=== PATIENT | female | born 1945 | race Hispanic/Latino ===

== ENCOUNTER 2016-07-05 08:18 | Emergency (ER) | payer MEDICAID, MEDICARE ==
[2016-07-05 08:24] VITALS: BMI 41.1
[2016-07-05 08:32] VITALS: TEMP 98.1; O2SAT 96
--- NOTE | 2016-07-05 08:48 | ED PDOC ---
Arrival/HPI - General Chief Complaint: Abdominal Pain Time Seen by Provider: 07/05/16 08:45 Historian: Patient - History of Present Illness Narrative History of Present Illness (Text): 07/05/16 08:45 70 year old female presents to the emergency department with suprapubic pain for the past 3-4 days with dysuria and frequency. Patient states it feels like her previous UTI's. Contrary to triage, patient does not have pain that radiates to the back. Patient also reports intermittent pain that feels like burning, beginning in the right buttock and radiates down the right leg, worse with movement or positioning, for the past few months. Time/Duration: < week Symptom Onset: Gradual Symptom Course: Unchanged Modifying Factors (Text): None Associated Symptoms (Text): None Past Medical History - Provider Review Nursing Documentation Reviewed: Yes - Infectious Disease Hx of Infectious Diseases: None - Tetanus Immunization Tetanus Immunization: Unknown - Cardiac Hx Cardiac Disorders: Yes Hx Circulatory Problems: Yes (right carotid endartorectomy) Hx Hypertension: Yes - Pulmonary Hx Respiratory Disorders: Yes Hx Asthma: Yes Hx Bronchitis: Yes Hx Chronic Obstructive Pulmonary Disease (COPD): Yes Hx Pneumonia: Yes - Neurological Hx Neurological Disorder: Yes HX Cerebrovascular Accident: Yes (left hand weakness) - HEENT Hx HEENT Disorder: No - Renal Hx Renal Disorder: Yes Hx Kidney Stones: Yes - Endocrine/Metabolic Hx Endocrine Disorders: No - Hematological/Oncological Hx Blood Disorders: No - Integumentary Hx Dermatological Disorder: No - Musculoskeletal/Rheumatological Hx Musculoskeletal Disorders: Yes Hx Arthritis: Yes - Gastrointestinal Hx Gastrointestinal Disorders: Yes Hx Gall Bladder Disease: Yes (cholecystectomy) - Genitourinary/Gynecological Hx Genitourinary Disorders: Yes Hx Urinary Tract Infection: Yes ("bladder infection") - Psychiatric Hx Psychophysiologic Disorder: No Hx Substance Use: No - Surgical History Hx Appendectomy: Yes Hx Cholecystectomy: Yes Hx Hysterectomy: Yes Other/Comment: tubal ligation - Anesthesia Hx Anesthesia: Yes Hx Anesthesia Reactions: No Hx Malignant Hyperthermia: No - Suicidal Assessment Feels Threatened In Home Enviroment: No Family/Social History - Physician Review Nursing Documentation Reviewed: Yes Family/Social History: Unknown Family HX Smoking Status: Former Smoker Hx Alcohol Use: No Hx Substance Use: No Hx Substance Use Treatment: No Allergies/Home Meds Allergies/Adverse Reactions: Allergies Penicillins Allergy (Verified 07/05/16 08:24) ANAPHYLAXIS Sulfa (Sulfonamide Antibiotics) Allergy (Verified 07/05/16 08:24) ANAPHYLAXIS Home Medications: Home Meds Medication Instructions Recorded Confirmed Carvedilol [Coreg] 6.25 mg PO BID 08/21/15 07/05/16 Pravastatin Sodium [Pravachol] 40 mg PO DAILY 08/21/15 07/05/16 Albuterol HFA [Ventolin HFA 90 1 puff IH PRN PRN 07/05/16 07/05/16 mcg/actuation (8 g)] Aspirin [Aspirin Chewable] 81 mg PO DAILY 07/05/16 07/05/16 Levocetirizine Dihydrochloride 5 mg PO DAILY 07/05/16 07/05/16 [Levocetirizine Dihydrochloride] Losartan/Hydrochlorothiazide 1 tab PO DAILY 07/05/16 07/05/16 [Losartan-Hctz 100-25 mg Tab] Verapamil HCl [Verapamil ER] 240 mg PO DAILY 07/05/16 07/05/16 Review of Systems - Physician Review All systems were reviewed & negative as marked: Yes Physical Exam - Physical Exam Narrative Physical Exam (Text): - Review of Systems Constitutional: Normal. absent: Fatigue, Weight Change, Fevers Eyes: Normal ENT: Normal Respiratory: Normal absent: SOB, Cough, Sputum Cardiovascular: Normal absent: Chest pain, Palpitations, Syncope Gastrointestinal: Suprapubic abdominal pain absent: Diarrhea, Nausea, Vomiting Genitourinary: Dysuria, Frequency absent: Hematuria Musculoskeletal: Right buttock pain radiating to the right lower extremity absent: Arthralgias, Neck Pain Skin: Normal Neurological: Normal absent: Focal Weakness Endocrine: Normal Hemo/Lymphatic: Normal Psychiatric: Normal - Physical exam Patient appears age appropriate, speaking full sentences without difficulty - Systems Exam Head: Present: Atraumatic, Normocephalic Pupils: Present: PERRL Extraocular Muscles: Present: EOMI Conjunctiva: Present: Normal Mouth: Present: Moist Mucous Membranes Neck: Present: Normal Range of Motion. No: MIDLINE TENDERNESS, Paraspinal Tenderness Respiratory/Chest: Present: Clear to Auscultation, Good Air Exchange. No: Respiratory Distress, Accessory Muscle Use, Tachypneic Cardiovascular: Present: Regular Rate and Rhythm, Normal S1, S2, Peripheral Pulses Present. No: Murmurs Abdomen: Present: Suprapubic tenderness to palpation, Normal Bowel Sounds, No: Peritoneal Signs, Rebound, Guarding, Distention Back: Present: Right buttock tenderness to palpation, pain quality reproducible with palpation. No: Midline Tenderness, Paraspinal Tenderness Upper Extremity: Present: Normal Inspection. No: Cyanosis, Edema Lower Extremity: Present: Normal Inspection. No: Edema Neurological: Present: GCS=15, Speech Normal, cranial nerves II through XII fully intact with no cerebellar abnormality, neuro-sensory fully intact. No focal neurological deficits. Skin: Present: Warm, Dry, Normal Color. No: Rashes Lymphatic: Present: OX3, NI, NC Psychiatric: Present: Alert, Oriented x 3, Normal Insight, Normal Concentration Vital Signs Reviewed: Yes Vital Signs Temp Pulse Resp BP Pulse Ox 07/05/16 08:31 98.1 F 78 16 140/96 H 96 Temperature: Afebrile Blood Pressure: Normal Pulse: Regular Respiratory Rate: Normal Appearance: Positive for: Well-Appearing, Non-Toxic, Uncomfortable Mental Status: Positive for: Alert and Oriented X 3 Medical Decision Making ED Course and Treatment: Impression: 70 year old female presents with suprapubic pain and right buttock pain radiating down the leg. On physical exam, patient has suprapubic tenderness to palpation, right buttock tenderness to palpation, pain quality reproducible with palpation. Differential Diagnosis include but are not limited to: Sciatica vs Piriformis syndrome Plan: -- Toradol -- Reassess and disposition Prior Visits: Notes and results from previous visits were reviewed. Patient last seen in the ED on 12/17/15 and admitted for COPD exacerbation Progress Notes: EKG shows NSR at [address]-segment elevations, normal intervals. with no prior for comparison. Interpreted by me. 07/05/16 09:56 On reevaluation, patients states that her buttock/right lower extremity discomfort fully resolved. UA pos. for yeast pt states she feels comfortable being dc'd home with outpatient f/u Will order urine culture. Patient states that she understands to follow-up in medical records in 48 hours for results. Pt states she understands to return to the ER right away for new or worsening symptoms or for inability to f/u with PMD or specialist as instructed. Patient states that she fully agrees with and understands discharge instructions. States that she agrees with the plan and disposition. Verbalized and repeated discharge instructions and plan. I have given the patient opportunity to ask any additional questions. - Lab Interpretations Lab Results: Lab Results 07/05/16 08:50: Urine Color Yellow, Urine Appearance Clear, Urine pH 6.0, Ur Specific Sidney 1.025, Urine Protein Trace H, Urine Glucose (UA) Negative, Urine Ketones Negative, Urine Blood Small H, Urine Nitrate Negative, Urine Bilirubin Negative, Urine Urobilinogen 0.2, Ur Leukocyte Esterase Small H, Urine RBC 2 - 5, Urine WBC 5 - 10, Ur Epithelial Cells 4 - 5, Amorphous Sediment Few, Urine Bacteria Small, Urine Other Uyeast - EKG Interpretation Interpreted by ED Physician: Yes Type: 12 lead EKG - Medication Orders Current Medication Orders: Discontinued Medications Ketorolac Tromethamine (Toradol) 30 mg IM STAT STA Stop: 07/05/16 08:46 Last Admin: 07/05/16 08:54 Dose: 30 MG IM Administration Charges Document 07/05/16 08:54 ALA (Rec: 07/05/16 08:54 ALA [id number]) Injection Site MAR Injection Site Right Gluteus Aditya Charges for Administration # of IM Administrations 1 - Scribe Statement The provider has reviewed the documentation as recorded by the Toby Aden Provider Scribe Attestation: All medical record entries made by the Yunibe were at my direction and personally dictated by me. I have reviewed the chart and agree that the record accurately reflects my personal performance of the history, physical exam, medical decision making, and the department course for this patient. I have also personally directed, reviewed, and agree with the discharge instructions and disposition. Disposition/Present on Arrival - Present on Arrival Any Indicators Present on Arrival: No History of DVT/PE: No History of Uncontrolled Diabetes: No Urinary Catheter: No History of Decub. Ulcer: No History Surgical Site Infection Following: None - Disposition Have Diagnosis and Disposition been Completed?: Yes Diagnosis: UTI (urinary tract infection) Disposition: HOME/ ROUTINE Disposition Time: 09:59 Patient Plan: Discharge Condition: GOOD Discharge Instructions (ExitCare): Dysuria (ED), Urinary Tract Infection in Women (ED) Additional Instructions: Please follow-up in medical records in 48 hours for your urine results PLEASE RETURN TO THE EMERGENCY DEPARTMENT FOR NEW OR WORSENING SYMPTOMS. RETURN RIGHT AWAY IF YOU CANNOT FOLLOW UP WITH YOUR PRIMARY CARE DOCTOR, CLINIC, OR SPECIALIST IN 1-2 DAYS. Prescriptions: Fluconazole [Diflucan] 150 mg PO ONCE #1 tab
[2016-07-05 09:04] LABS: URINE APPEARANCE CLEAR (CLEAR); URINE BILIRUBIN NEGATIVE (NEGATIVE); URINE BLOOD SMALL (NEGATIVE); URINE COLOR YELLOW (YELLOW); URINE GLUCOSE (UA) NEGATIVE (NEGATIVE); URINE KETONE NEGATIVE (NEGATIVE); URINE LEUKOCYTE ESTERASE SMALL Leu/uL (NEGATIVE); URINE PROTEIN TRACE mg/dL (<30 mg/dL); URINE UROBILINOGEN 0.2 E.U./dL (<1 E.U./dL)
[2016-07-05 09:32] LABS: URINE BACTERIA SMALL (NEG)
[2016-07-05 09:33] LABS: URINE AMORPHOUS SEDIMENT FEW
[2016-07-05 10:12] VITALS: BP 154/95; PULSE 67; RESP 17
--- NOTE | 2016-07-05 18:28 | CARD ---
APPROVED REPORT EKG Measurement Heart [id number] <Conclusion> Sinus rhythm with premature atrial complexes Nonspecific ST abnormality Abnormal ECG
== END 2016-07-05 10:12 | disposition home or self-care (01) ==
LOC: ED 08:18
DX: N39.0 Urinary tract infection, site not specified (principal); Z87.891 Personal history of nicotine dependence; Z88.0 Allergy status to penicillin
CPT/HCPCS: 81001; 87086; 93005; 96372; 99283; J1885

== ENCOUNTER 2016-12-02 12:08 | Emergency (ER) | payer MEDICARE, MEDICAID ==
[2016-12-02 12:09] VITALS: BMI 41.1
[2016-12-02 12:35] VITALS: RESP 19; TEMP 98
--- NOTE | 2016-12-02 13:18 | ED PDOC ---
Arrival/HPI - General Chief Complaint: Lower Extremity Problem/Injury Time Seen by Provider: 12/02/16 12:40 Historian: Patient - History of Present Illness Narrative History of Present Illness (Text): 12/02/16 13:07 A 71 year old female, whose past medical history includes hypertension, CAD, asthma, bronchitis, COPD, pneumonia, CVA, and arthritis, presents to the emergency department complaining of right-side back pain radiating pain from lower back and right buttock to groin to lower leg (knee) for 2 days. Patient reports when ambulating, she begins to experience symptoms. She mentions that she has had similar symptoms 5 months ago, but they resolved. Patient denies of any recent trauma, abdominal pain, or any other complaints. Denies urinary symptoms, denies hematuria. PMD: Dr. Bedolla Time/Duration: < week (2 days) Symptom Onset: Sudden Symptom Course: Unchanged Context: Walking, Home Past Medical History - Provider Review Nursing Documentation Reviewed: Yes - Infectious Disease Hx of Infectious Diseases: None - Tetanus Immunization Tetanus Immunization: Unknown - Cardiac Hx Cardiac Disorders: Yes Hx Circulatory Problems: Yes (right carotid endartorectomy) Hx Hypertension: Yes - Pulmonary Hx Respiratory Disorders: Yes Hx Asthma: Yes Hx Bronchitis: Yes Hx Chronic Obstructive Pulmonary Disease (COPD): Yes Hx Pneumonia: Yes - Neurological Hx Neurological Disorder: Yes HX Cerebrovascular Accident: Yes (left hand weakness) - HEENT Hx HEENT Disorder: No - Renal Hx Renal Disorder: Yes Hx Kidney Stones: Yes - Endocrine/Metabolic Hx Endocrine Disorders: No - Hematological/Oncological Hx Blood Disorders: No - Integumentary Hx Dermatological Disorder: No - Musculoskeletal/Rheumatological Hx Musculoskeletal Disorders: Yes Hx Arthritis: Yes - Gastrointestinal Hx Gastrointestinal Disorders: Yes Hx Gall Bladder Disease: Yes (cholecystectomy) - Genitourinary/Gynecological Hx Genitourinary Disorders: Yes Hx Urinary Tract Infection: Yes ("bladder infection") - Psychiatric Hx Psychophysiologic Disorder: No Hx Substance Use: No - Surgical History Hx Appendectomy: Yes Hx Cholecystectomy: Yes Hx Hysterectomy: Yes Other/Comment: tubal ligation - Anesthesia Hx Anesthesia: Yes Hx Anesthesia Reactions: No Hx Malignant Hyperthermia: No - Suicidal Assessment Feels Threatened In Home Enviroment: No Family/Social History - Physician Review Nursing Documentation Reviewed: Yes Family/Social History: No Known Family HX Smoking Status: Former Smoker Hx Alcohol Use: No Hx Substance Use: No Hx Substance Use Treatment: No Allergies/Home Meds Allergies/Adverse Reactions: Allergies Penicillins Allergy (Verified 12/02/16 12:35) ANAPHYLAXIS Sulfa (Sulfonamide Antibiotics) Allergy (Verified 12/02/16 12:35) ANAPHYLAXIS Home Medications: Home Meds Medication Instructions Recorded Confirmed Carvedilol [Coreg] 6.25 mg PO BID 08/21/15 12/02/16 Pravastatin Sodium [Pravachol] 40 mg PO DAILY 08/21/15 12/02/16 Albuterol HFA [Ventolin HFA 90 1 puff IH PRN PRN 07/05/16 12/02/16 mcg/actuation (8 g)] Aspirin [Aspirin Chewable] 81 mg PO DAILY 07/05/16 12/02/16 Losartan/Hydrochlorothiazide 1 tab PO DAILY 07/05/16 12/02/16 [Losartan-Hctz 100-25 mg Tab] Montelukast Sodium [Singulair] 10 mg PO DAILY PRN 12/02/16 12/02/16 Review of Systems - Review of Systems Constitutional: absent: Other (denies any recent trauma) Respiratory: absent: SOB Cardiovascular: absent: Chest Pain Gastrointestinal: absent: Abdominal Pain, Diarrhea Genitourinary Female: absent: Dysuria, Frequency, Hematuria, Urine Output Changes Musculoskeletal: Back Pain (lumbar spine (right-side) back pain radiating down to groin and right lower leg (knee)). absent: Neck Pain, Joint Swelling Skin: absent: Rash Neurological: absent: Headache, Dizziness Hemo/Lymphatic: absent: Easy Bleeding Psychiatric: absent: Depression Physical Exam - Physical Exam Narrative Physical Exam (Text): 12/02/16 13:11 Head: Atraumatic. Normocephalic. Eyes: PERRL. EOMI. Conjunctivae are not pale. ENT: Mucous membranes are moist and intact. Oropharynx is clear and symmetric. Neck: Supple. Full ROM. No JVD. No lymphadenopathy. Cardiovascular: Regular rate. Regular rhythm. Distal pulses are 2+ and symmetric. Pulmonary/Chest: No evidence of respiratory distress. Clear to auscultation bilaterally. No wheezing, rales or rhonchi. Abdominal: Soft and non-distended. There is no tenderness. No rebound, guarding, or rigidity. No organomegaly. Good bowel sounds. Back: Back palpation midline tenderness to lumbar spine, associated with paraspinal spasm; right gluteal tenderness Extremities: No edema. No cyanosis. No clubbing. Full range of motion in all extremities. No calf tenderness. Skin: Skin is warm and dry. No petechiae. No purpura. No vesicular rash. Neurological: Alert, awake, and oriented . Motor and sensory intact. No saddle anesthesia. Reflexes intact and symmetric. Psychiatric: Good eye contact. Normal interaction, affect, and behavior. Vital Signs Reviewed: Yes Vital Signs Temp Pulse Resp BP Pulse Ox 12/02/16 14:57 119 H 19 165/92 H 96 12/02/16 12:30 98 F 86 19 195/75 H 97 Temperature: Afebrile Blood Pressure: Hypertensive Pulse: Regular Respiratory Rate: Normal Appearance: Positive for: Well-Appearing Pain Distress: Mild Mental Status: Positive for: Alert and Oriented X 3 Medical Decision Making ED Course and Treatment: 12/02/16 13:13 Impression: 71 year old female with right-side radiating pain of lower back to groin to lower leg Differential Diagnosis included but are not limited to: Sciatica vs. Lumbar Radiculopathy Plan: -- EKG -- LS Spine X-Ray -- Toradol -- Reassess and disposition Progress Notes: Patient's pain is palpable, worse with movement. Radiates from buttock down lateral thigh to groin. No inguinal masses or hernias. No saddle anesthesia. No motor or sensory deficits. Reflexes symmetric and intact. No incontinence of urine or stool. 12/02/2016 14:06 LS Spine X-ray FINDINGS: BONES: No evidence of acute compression fractures no retropulsed fragments. Vertebral bodies exhibit normal stature. Approximately grade 1 anterior subluxation L4 over L5 due to hypertrophic facets as there is no evidence of spondylolysis. Additionally, there is a mild dextroscoliosis centered at the L1- L2 level. . DISC SPACES: Multilevel degenerative spondylosis. Changes include varying varying degrees of disc space narrowing more so along the posterior disc margins with endplate eburnation and anterolateral osteophyte formation. Facets are hypertrophic from L5-S1 through the L1-L2 levels in decreasing order of severity. OTHER FINDINGS: Metallic clips right upper quadrant of the abdomen consistent with prior cholecystectomy. IMPRESSION: No acute fractures. Multilevel degenerative spondylosis. . Approximately grade 1 anterior subluxation L 4 over L5 due to hypertrophic facets. Dictator : Wilberto Berger MD Abnormal xray findings reviewed with patient, she reports prior history of back pain. As she is ambulatory after Toradol with improved pain, with no neuro deficits, will discharge with Naproxen, Flexeril, and follow-up with her PMD. Instructions given. - RAD Interpretation Radiology Orders: 12/02/16 13:13 LS SPINE WITH OBL > 18 YRS OLD [RAD] Stat - Medication Orders Current Medication Orders: Discontinued Medications Cyclobenzaprine HCl (Flexeril) 10 mg PO STAT STA Stop: 12/02/16 14:59 Last Admin: 12/02/16 15:05 Dose: 10 mg Ketorolac Tromethamine (Toradol) 15 mg IM ONCE ONE Stop: 12/02/16 13:16 Last Admin: 12/02/16 14:10 Dose: 15 mg - Scribe Statement The provider has reviewed the documentation as recorded by the Toby Escobedo Provider Scribe Attestation: All medical record entries made by the Yunibsloan were at my direction and personally dictated by me. I have reviewed the chart and agree that the record accurately reflects my personal performance of the history, physical exam, medical decision making, and the department course for this patient. I have also personally directed, reviewed, and agree with the discharge instructions and disposition. Disposition/Present on Arrival - Present on Arrival Any Indicators Present on Arrival: No History of DVT/PE: No History of Uncontrolled Diabetes: No Urinary Catheter: No History of Decub. Ulcer: No History Surgical Site Infection Following: None - Disposition Have Diagnosis and Disposition been Completed?: Yes Diagnosis: Sciatica, Back pain Disposition: HOME/ ROUTINE Disposition Time: 14:30 Patient Plan: Discharge Condition: GOOD Discharge Instructions (ExitCare): Sciatica (ED) Additional Instructions: Rest. No heavy lifting or strenuous activity. For any abdominal pain, any chest pain, any shortness of breath, any numbness or weakness, any incontinence of urine or stool, any rash, any persistent or worsening of symptoms, get rechecked. immediately. Follow-up with your primary care doctor in 1-2 days. Prescriptions: Cyclobenzaprine [Cyclobenzaprine HCl] 10 mg PO TID PRN #12 tab PRN Reason: Muscle Spasm Naproxen [Naprosyn Tab] 250 mg PO BID PRN #10 tab PRN Reason: Pain, Mild (1-3) Referrals: Kris Bedolla MD [Primary Care Provider] - Follow up with primary Forms: [employer] ([place])
--- NOTE | 2016-12-02 14:07 | RAD ---
PROCEDURE: Radiographs of the Lumbar Spine. HISTORY: low back pain, right buttock pain COMPARISON: Comparison made with CT scan of the abdomen and pelvis dated 12/17/2015 FINDINGS: BONES: No evidence of acute compression fractures no retropulsed fragments. Vertebral bodies exhibit normal stature. Approximately grade 1 anterior subluxation L4 over L5 due to hypertrophic facets as there is no evidence of spondylolysis. Additionally, there is a mild dextroscoliosis centered at the L1-L2 level. . DISC SPACES: Multilevel degenerative spondylosis. Changes include varying varying degrees of disc space narrowing more so along the posterior disc margins with endplate eburnation and anterolateral osteophyte formation. Facets are hypertrophic from L5-S1 through the L1-L2 levels in decreasing order of severity. OTHER FINDINGS: Metallic clips right upper quadrant of the abdomen consistent with prior cholecystectomy. IMPRESSION: No acute fractures. Multilevel degenerative spondylosis. . Approximately grade 1 anterior subluxation L 4 over L5 due to hypertrophic facets.
[2016-12-02 15:00] VITALS: BP 165/92; PULSE 119; O2SAT 96
--- NOTE | 2016-12-02 20:59 | CARD ---
APPROVED REPORT EKG Measurement Heart [id number] <Conclusion> Sinus rhythm with premature atrial complexes Nonspecific ST abnormality Abnormal ECG
== END 2016-12-02 15:08 | disposition home or self-care (01) ==
LOC: ED 12:08
DX: M54.40 Lumbago with sciatica, unspecified side (principal); I25.10 Atherosclerotic heart disease of native coronary artery without angina pectoris; I10 Essential (primary) hypertension; Z86.73 Personal history of transient ischemic attack (TIA), and cerebral infarction without residual deficits; Z87.891 Personal history of nicotine dependence
CPT/HCPCS: 72110; 93005; 96372; 99283; J1885

== ENCOUNTER 2017-08-12 12:08 | Emergency (ER) | payer MEDICARE, MEDICAID ==
[2017-08-12 12:28] VITALS: RESP 18; TEMP 98.5; BMI 38.3
[2017-08-12] MEDS ORDERED: Morphine 4 mg/ml ISec IVP STA (12:45)
[2017-08-12] MEDS ORDERED: Iohexol 240 (50 ml) ONE (12:59)
[2017-08-12 13:32] LABS: VENOUS BLOOD GAS BASE EXCESS 6.8 mmol/L (0.0-2.0); VENOUS BLOOD GAS PO2 30 mm/Hg (30-55); VENOUS BLOOD PH 7.38 (7.32-7.43)
[2017-08-12 13:38] LABS: BASO # 0.03 K/mm3 (0.0-2.0); BASO % 0.4 % (0.0-3.0); EOS # 0.1 (0.0-0.7); EOS % 1.7 % (1.5-5.0); GRAN # 4.03 (1.4-6.5); GRAN % 51.6 % (50.0-68.0); HEMOGLOBIN 12.7 g/dL (12.0-16.0); LYMPH # 3.1 (1.2-3.4); LYMPH % 39.9 % (22.0-35.0); MEAN CELL VOLUME 81.7 fl (80.0-105.0); MEAN CORPUSCULAR HEMOGLOBIN 26.5 pg (25.0-35.0); MEAN CORPUSCULAR HGB CONC 32.4 g/dl (31.0-37.0); MEAN PLATELET VOLUME 8.9 fl (7.0-11.0); MONO # 0.5 (0.1-0.6); MONO % 6.4 % (1.0-6.0); RBC 4.8 10^6/uL (3.5-6.1); RED CELL DISTRIBUTION WIDTH 14.9 % (11.5-14.5); URINE BILIRUBIN NEGATIVE (NEGATIVE); URINE BLOOD TRACE-INTACT (NEGATIVE); URINE GLUCOSE (UA) NEGATIVE (NEGATIVE); URINE LEUKOCYTE ESTERASE MODERATE Leu/uL (NEGATIVE); URINE PROTEIN NEGATIVE mg/dL (<30 mg/dL); URINE UROBILINOGEN 0.2 E.U./dL (<1 E.U./dL); WHITE BLOOD COUNT 7.8 10^3/ul (4.5-11.0)
[2017-08-12 13:40] LABS: URINE APPEARANCE CLEAR (CLEAR); URINE COLOR YELLOW (YELLOW)
[2017-08-12 13:46] LABS: INR 1.02 (0.93-1.08); PARTIAL THROMBOPLASTIN TIME 29.2 Seconds (25.1-36.5); PROTHROMBIN TIME 11.6 SECONDS (9.4-12.5)
[2017-08-12 13:48] LABS: ALB/GLOB RATIO 1.4 (1.1-1.8); ALBUMIN 4.4 g/dL (3.0-4.8); ALT/SGPT 26 U/L (7-56); AST/SGOT 35 U/L (14-36); BLOOD UREA NITROGEN 11 mg/dL (7-21); CALCIUM 10.4 mg/dL (8.4-10.5); GFR AFRICAN-AMERICAN > 60; GFR NON-AFRICAN AMERICAN > 60; LIPASE 104 U/L (23-300)
[2017-08-12 13:50] LABS: URINE BACTERIA SMALL (NEG); URINE WBC 20 - 25 /hpf (0-6)
[2017-08-12 14:04] LABS: B-TYPE NATRIURETIC PEPTIDE 159 pg/mL (0-450); TROPONIN I < 0.01 ng/mL
--- NOTE | 2017-08-12 14:22 | ED PDOC ---
Arrival/HPI - General Chief Complaint: Back Pain Time Seen by Provider: 08/12/17 12:18 Historian: Patient - History of Present Illness Narrative History of Present Illness (Text): 08/12/17 12:45 A 71 year old female, whose past medical history includes kidney stones, and hypertension, who presents to the emergency department complaining of left lower back pain radiating to her left abdomen. Patient describes pain as sharp and achy. Patient reports associated nausea, and watery diarrhea. Patient states has taken no medications for pain relief. Patient also reports bilateral leg swelling for 1 week, left greater than right. Patient denies any vomiting, chest pain, shortness of breath, urinary symptoms, or any other complaints at this time. No PMD Symptom Onset: Gradual Symptom Course: Unchanged Activities at Onset: Light Context: Home Past Medical History - Provider Review Nursing Documentation Reviewed: Yes - Infectious Disease Hx of Infectious Diseases: None - Tetanus Immunization Tetanus Immunization: Unknown - Reproductive Menopause: No - Cardiac Hx Cardiac Disorders: Yes Hx Circulatory Problems: Yes (right carotid endartorectomy) Hx Hypertension: Yes - Pulmonary Hx Respiratory Disorders: Yes Hx Asthma: Yes Hx Bronchitis: Yes Hx Chronic Obstructive Pulmonary Disease (COPD): Yes Hx Pneumonia: Yes - Neurological Hx Neurological Disorder: Yes HX Cerebrovascular Accident: Yes (left hand weakness) - HEENT Hx HEENT Disorder: No - Renal Hx Renal Disorder: Yes Hx Kidney Stones: Yes - Endocrine/Metabolic Hx Endocrine Disorders: No - Hematological/Oncological Hx Blood Disorders: Yes Hx Anemia: Yes - Integumentary Hx Dermatological Disorder: No - Musculoskeletal/Rheumatological Hx Musculoskeletal Disorders: Yes Hx Arthritis: Yes Hx Back Pain: Yes Hx Falls: Yes - Gastrointestinal Hx Gastrointestinal Disorders: Yes Hx Gall Bladder Disease: Yes (cholecystectomy) - Genitourinary/Gynecological Hx Genitourinary Disorders: Yes Hx Urinary Tract Infection: Yes ("bladder infection") - Psychiatric Hx Psychophysiologic Disorder: No Hx Anxiety: No Hx Bipolar Disorder: No Hx Depression: No Hx Emotional Abuse: No Hx Hallucinations: No Hx Panic Disorder: No Hx Post Traumatic Stress Disorder: No Hx Psychosis: No Hx Physical Abuse: No Hx Schizophrenia: No Hx Sexual Abuse: No Hx Substance Use: No - Surgical History Hx Appendectomy: Yes Hx Carotid Endarterectomy: Yes (RIGHT) Hx Cholecystectomy: Yes Hx Hysterectomy: Yes Hx Tubal Ligation: Yes Other/Comment: tubal ligation - Anesthesia Hx Anesthesia: Yes Hx Anesthesia Reactions: No Hx Malignant Hyperthermia: No - Suicidal Assessment Feels Threatened In Home Enviroment: No Family/Social History - Physician Review Nursing Documentation Reviewed: Yes Family/Social History: No Known Family HX Smoking Status: Never Smoked Hx Alcohol Use: No Hx Substance Use: No Hx Substance Use Treatment: No Allergies/Home Meds Allergies/Adverse Reactions: Allergies Penicillins Allergy (Verified 08/12/17 12:47) ANAPHYLAXIS Sulfa (Sulfonamide Antibiotics) Allergy (Verified 08/12/17 12:47) ANAPHYLAXIS Home Medications: Home Meds Medication Instructions Recorded Confirmed Carvedilol [Coreg] 6.25 mg PO BID 08/21/15 08/12/17 Albuterol HFA [Ventolin HFA 90 1 puff IH PRN PRN 07/05/16 08/12/17 mcg/actuation (8 g)] Aspirin [Aspirin Chewable] 81 mg PO DAILY 07/05/16 08/12/17 Verapamil HCl [Verapamil ER] 1 tab PO DAILY 01/22/17 08/12/17 Rosuvastatin Calcium [Crestor] 40 mg PO DIN 08/12/17 08/12/17 Review of Systems - Physician Review All systems were reviewed & negative as marked: Yes - Review of Systems Gastrointestinal: Abdominal Pain (radiating from back), Diarrhea (watery), Nausea. absent: Vomiting Musculoskeletal: Back Pain (left lower), Other (bilateral leg swelling (left greater than right)) Physical Exam Vital Signs Reviewed: Yes Vital Signs Temp Pulse Resp BP Pulse Ox 08/12/17 15:25 69 18 142/94 H 98 08/12/17 14:00 75 18 144/103 H 97 08/12/17 12:25 98.5 F 79 18 169/114 H 97 Temperature: Afebrile Blood Pressure: Hypertensive Pulse: Regular Respiratory Rate: Normal Appearance: Positive for: Well-Appearing Pain Distress: None Mental Status: Positive for: Alert and Oriented X 3 - Systems Exam Head: Present: Atraumatic, Normocephalic Pupils: Present: PERRL Extroacular Muscles: Present: EOMI Conjunctiva: Present: Normal Mouth: Present: Moist Mucous Membranes Neck: Present: Normal Range of Motion Respiratory/Chest: Present: Clear to Auscultation, Good Air Exchange. No: Respiratory Distress, Accessory Muscle Use Cardiovascular: Present: Regular Rate and Rhythm, Normal S1, S2. No: Murmurs Abdomen: Present: Tenderness (Left-sided abdominal tenderness), Guarding. No: Peritoneal Signs, Rebound Back: No: CVA Tenderness Upper Extremity: Present: Normal Inspection. No: Cyanosis, Edema Lower Extremity: Present: Edema (+1 pitting edema) Neurological: Present: GCS=15, CN II-XII Intact, Speech Normal Skin: Present: Warm, Dry, Normal Color. No: Rashes Psychiatric: Present: Alert, Oriented x 3, Normal Insight, Normal Concentration Medical Decision Making ED Course and Treatment: 08/12/17 12:45 Impression: 71 year old female with left lower back pain radiating to left abdomen. Physical exam shows tenderness to left abdomen with guarding, no rebound and no peritoneal signs; +1 edema to lower extremities, swelling to both legs, left greater than right. Differential Diagnosis included but are not limited to: Bowel Obstruction vs. Diverticulitis Plan: -- EKG -- Abd/Pelvis CT -- Morphine -- Urine Culture -- Labs -- Venous Blood Gas -- Reassess and disposition Progress Notes: EKG: Ordered, reviewed, and independently interpreted the EKG. Rate : 70 BPM Rhythm : NSR Interpretation : No ST-segment elevations or depressions, no T-wave inversions, normal intervals. Comparison : No previous EKG for comparison. 08/12/2017 15:39 Abd/Pelvis CT FINDINGS: LOWER THORAX: Unremarkable. LIVER: Hepatic steatosis. No focal masses. No intrahepatic bile duct dilatation or perihepatic ascites. GALLBLADDER AND BILE DUCTS: Status post cholecystectomy. No abnormality is seen in the gallbladder fossa. PANCREAS: Unremarkable. No gross lesion or ductal dilatation. SPLEEN: Unremarkable. ADRENALS: Unremarkable. No mass. KIDNEYS AND URETERS: Unremarkable. No hydronephrosis. No solid mass. Incidental finding(s): Simple cyst upper pole right kidney 2.3 cm VASCULATURE: Unremarkable. No aortic aneurysm. BOWEL: Diverticulosis without an acute inflammatory component or other associated pathologic process. APPENDIX: Prior appendectomy PERITONEUM: Unremarkable. No free fluid. No free air. LYMPH NODES: Unremarkable. No enlarged lymph nodes. BLADDER: Unremarkable. REPRODUCTIVE: Prior hysterectomy BONES: No acute fracture. Anterolisthesis L4-5 with associated spondylolysis. OTHER FINDINGS: None. IMPRESSION: No acute findings related to/accounting for the clinical presentation. Additional benign and/or incidental findings described above. No significant interval change compared to the prior examination(s). Dictator: Manuel Brian MD 08/12/17 14:30 On re-evaluation, patient feels better and is in no acute distress. I have discussed the results and plan with the patient and family, who expresses understanding. Patient and family in agreement with plan to be discharged home. Patient is stable for discharge. Patient and family were instructed to follow up with physician or return if symptoms worsen or new concerning symptoms arise. - Lab Interpretations Lab Results: 08/12/17 13:23 08/12/17 13:23 Lab Results 08/12/17 13:23: Sodium 144, Chloride 102, Potassium 3.8, Carbon Dioxide 31, Anion Gap 15, BUN 11, Creatinine 0.9, Est GFR ( Amer) > 60, Est GFR (Non- Af Amer) > 60, Random Glucose 90, Calcium 10.4, Magnesium 1.8, Total Bilirubin 0.4, AST 35, ALT 26, Alkaline Phosphatase 90, Lactate Dehydrogenase 460, Total Creatine Kinase 66, Troponin I < 0.01, NT-Pro-B Natriuret Pep 159, Total Protein 7.7, Albumin 4.4, Globulin 3.2, Albumin/Globulin Ratio 1.4, Lipase 104 08/12/17 13:23: pO2 30, VBG pH 7.38, VBG pCO2 57.0, VBG HCO3 33.7 H, VBG Total CO2 35.4 H, VBG O2 Sat (Calc) 64.2, VBG Base Excess 6.8 H, VBG Potassium 3.7, Sodium 139.0, Chloride 103.0, Glucose 90, Lactate 0.9, FiO2 21.0, Venous Blood Potassium 3.7 08/12/17 13:23: Urine Color Yellow, Urine Appearance Clear, Urine pH 6.0, Ur Specific [place] 1.020, Urine Protein Negative, Urine Glucose (UA) Negative, Urine Ketones Negative, Urine Blood Trace-intact H, Urine Nitrate Negative, Urine Bilirubin Negative, Urine Urobilinogen 0.2, Ur Leukocyte Esterase Moderate H, Urine RBC 2 - 5, Urine WBC 20 - 25, Ur Epithelial Cells 4 - 5, Urine Bacteria Small 08/12/17 13:23: PT 11.6, INR 1.02, APTT 29.2 08/12/17 13:23: WBC 7.8 D, RBC 4.80, Hgb 12.7, Hct 39.2, MCV 81.7, MCH 26.5, MCHC 32.4, RDW 14.9 H, Plt Count 270, MPV 8.9, Gran % 51.6, Lymph % (Auto) 39.9 H, [place] % (Auto) 6.4 H, Eos % (Auto) 1.7, Baso % (Auto) 0.4, Gran # 4.03, Lymph # (Auto) 3.1, [place] # (Auto) 0.5, Eos # (Auto) 0.1, Baso # (Auto) 0.03 I have reviewed the lab results: Yes - RAD Interpretation Radiology Orders: 08/12/17 12:45 ABD PELVIS PO & IV CONTRAST [CT] Stat - Medication Orders Current Medication Orders: Discontinued Medications Ciprofloxacin (Cipro) 500 mg PO ONCE STA PRN Reason: Protocol Stop: 08/12/17 15:59 Last Admin: 08/12/17 16:15 Dose: 500 mg Morphine Sulfate (Morphine) 4 mg IVP STAT STA Stop: 08/12/17 12:46 Last Admin: 08/12/17 13:15 Dose: 4 mg MAR Pain Assessment Document 08/12/17 13:15 HI (Rec: 08/12/17 13:15 HI [id number]) Pain Reassessment Is this a pain reassessment? No Sleep Is patient sleeping during reassessment? No Presence of Pain Presence of Pain No Pain Scale Used Pain Scale Used Numeric Location Left, Right or Bilateral Left Upper or Lower Lower Pain Location Body Site Back Description Description Constant Intensity of Pain at present 9 IVP Administration Document 08/12/17 13:15 HI (Rec: 08/12/17 13:15 HI [id number]) Charges for Administration # of IVP Administrations 1 Re-Assess: MAR Pain Assessment Document 08/12/17 14:15 HI (Rec: 08/12/17 16:16 HI [id number]) Pain Reassessment Is this a pain reassessment? Yes Sleep Is patient sleeping during reassessment? No Presence of Pain Presence of Pain No - Scribe Statement The provider has reviewed the documentation as recorded by the Toby Escobedo Provider Scribe Attestation: All medical record entries made by the Scribe were at my direction and personally dictated by me. I have reviewed the chart and agree that the record accurately reflects my personal performance of the history, physical exam, medical decision making, and the department course for this patient. I have also personally directed, reviewed, and agree with the discharge instructions and disposition. Disposition/Present on Arrival - Present on Arrival History of DVT/PE: No History of Uncontrolled Diabetes: No Urinary Catheter: No History of Decub. Ulcer: No History Surgical Site Infection Following: None - Disposition Diagnosis: UTI (urinary tract infection), Abdominal pain Disposition: HOME/ ROUTINE Disposition Time: 14:30 Condition: IMPROVED Discharge Instructions (ExitCare): Urinary Tract Infections in Adults Additional Instructions: Ms Worrell, thank you for letting us take care of you today. Your provider was Dr. Brennan. You were treated for UTI, Abdominal Pain. The emergency medical care you received today was directed at your acute symptoms. If you were prescribed any medication, please fill it and take as directed. It may take several days for your symptoms to resolve. Return to the Emergency Department if your symptoms worsen, do not improve, or if you have any other problems. Please contact your doctor or call one of the physicians/clinics you have been referred to that are listed on the Patient Visit Information form that is included in your discharge packet. Bring any paperwork you were given at discharge with you along with any medications you are taking to your follow up visit. Our treatment cannot replace ongoing medical care by a primary care provider (PCP) outside of the emergency department. Thank you for allowing the [facility] team to be part of your care today. If you had an X-Ray or CT scan: A Radiologist will review the ED reading if any change in treatment is needed we will contact you. If you had a blood, urine, or wound culture: It will take several days for the results, if any change in treatment is needed we will contact you. If you had an STI test: It will take 48 hours for the results. Please call after 1 week if you have not heard back. Prescriptions: Ciprofloxacin [Cipro] 500 mg PO Q12 #10 tab Ibuprofen [Motrin] 600 mg PO Q6 PRN #30 tab PRN Reason: Pain, Moderate (4-7) Referrals: Kris Bedolla MD [Family Provider] - Follow up with primary Forms: [employer] (Vietnamese), WORK NOTE
[2017-08-12 15:25] VITALS: BP 142/94; PULSE 69; O2SAT 98
--- NOTE | 2017-08-12 15:40 | CT ---
PROCEDURE: CT Abdomen and Pelvis with contrast HISTORY: Left-sided abdominal pain. Obstruction suspected COMPARISON: 12/17/2015. CT abdomen and pelvis TECHNIQUE: Contrast dose: 150 cc Omnipaque 350. Radiation dose: Total exam DLP = 909.30 mGy-cm. This CT exam was performed using one or more of the following dose reduction techniques: Automated exposure control, adjustment of the mA and/or kV according to patient size, and/or use of iterative reconstruction technique. FINDINGS: LOWER THORAX: Unremarkable. LIVER: Hepatic steatosis. No focal masses. No intrahepatic bile duct dilatation or perihepatic ascites. GALLBLADDER AND BILE DUCTS: Status post cholecystectomy. No abnormality is seen in the gallbladder fossa. PANCREAS: Unremarkable. No gross lesion or ductal dilatation. SPLEEN: Unremarkable. ADRENALS: Unremarkable. No mass. KIDNEYS AND URETERS: Unremarkable. No hydronephrosis. No solid mass. Incidental finding(s): Simple cyst upper pole right kidney 2.3 cm VASCULATURE: Unremarkable. No aortic aneurysm. BOWEL: Diverticulosis without an acute inflammatory component or other associated pathologic process. APPENDIX: Prior appendectomy PERITONEUM: Unremarkable. No free fluid. No free air. LYMPH NODES: Unremarkable. No enlarged lymph nodes. BLADDER: Unremarkable. REPRODUCTIVE: Prior hysterectomy BONES: No acute fracture. Anterolisthesis L4-5 with associated spondylolysis. OTHER FINDINGS: None. IMPRESSION: No acute findings related to/accounting for the clinical presentation. Additional benign and/or incidental findings described above. No significant interval change compared to the prior examination(s).
--- NOTE | 2017-08-13 10:06 | CARD ---
APPROVED REPORT EKG Measurement Heart [id number] [place] [id number] <Conclusion> Sinus rhythm with APCs No change
== END 2017-08-12 16:30 | disposition home or self-care (01) ==
LOC: ED 12:08
DX: N39.0 Urinary tract infection, site not specified (principal); R10.9 Unspecified abdominal pain; I10 Essential (primary) hypertension; Z87.442 Personal history of urinary calculi; Z90.49 Acquired absence of other specified parts of digestive tract
CPT/HCPCS: 74177; 80053; 81001; 82550; 82803; 83615; 83690; 83735; 83880; 84484; 85025; 85610; 85730; 87086; 93005; 96374; 99283; J2270; Q9966; Q9967